=== PATIENT | male | born 1995 | race Caucasian/White ===

== ENCOUNTER 2020-10-29 19:56 | Emergency (ER) | payer OTHER ==
[~2020-10-29] VITALS: Ht 172.7 cm; Wt 81.8 kg
[~2020-10-29 19:56] MED LIST: LISI-893 PO
[2020-10-29 20:11] VITALS: BP 119/70
== END 2020-10-29 22:26 | disposition home or self-care (01) ==
LOC: EMS 19:58
DX: T78.40XA Allergy, unspecified, initial encounter (principal); I10 Essential (primary) hypertension; X58.XXXA Exposure to other specified factors, initial encounter
CPT/HCPCS: 99282; Z7502